=== PATIENT | male | born 1995 | race Caucasian/White ===

== ENCOUNTER 2017-10-23 11:24 | Emergency (ER) | payer OTHER ==
--- NOTE | 2017-10-23 12:17 | UC ---
Throat Pain/Nasal Tom HPI - HPI Summary HPI Summary: Patient is a 22-year-old male with a 5 day history of severe sinus pressure and pain. He has had a hard time breathing through his nose. Had significant postnasal drip. He has felt fatigued. He denies any fever or chills. - History of Current Complaint Chief Complaint: UCGeneralIllness Stated Complaint: SINUS/CONGESTION Time Seen by Provider: 10/23/17 12:03 Hx Obtained From: Patient Onset/Duration: Sudden Onset Severity: Mild Pain Intensity: 5 Pain Scale Used: 0-10 Numeric Associated Signs & Symptoms: Positive: Sinus Discomfort, Nasal Discharge Related History: Prior ENT Surgery - right cholesatoma surgery - Epiglottits Risk Factors Epiglottis Risk Factors: Negative - Allergies/Home Medications Allergies/Adverse Reactions: Allergies Allergy/AdvReac Type Severity Reaction Status Date / Time No Known Allergies Allergy Verified 10/23/17 12:00 Home Medications: Home Medications Ibuprofen/Pseudoephedrine HCl [Advil Cold & Sinus Caplet] 2 each PO Q8HR PRN 12/03 [History Confirmed 10/23/17] PMH/Surg Hx/FS Hx/Imm Hx Previously Healthy: Yes - Surgical History Surgical History: Yes Surgery Procedure, Year, and Place: right hand. right ear surgery - Family History Known Family History: Positive: Hypertension - dad - Social History Alcohol Use: Occasionally Substance Use Type: None Smoking Status (MU): Never Smoked Tobacco Review of Systems Constitutional: Negative Skin: Negative Eyes: Negative ENT: Nasal Discharge, Sinus Congestion, Sinus Pain/Tenderness Respiratory: Cough Cardiovascular: Negative Gastrointestinal: Negative Genitourinary: Negative Motor: Negative Neurovascular: Negative Musculoskeletal: Negative Neurological: Negative Psychological: Negative Is Patient Immunocompromised?: No All Other Systems Reviewed And Are Negative: Yes Physical Exam Triage Information Reviewed: Yes Appearance: Well-Appearing, No Pain Distress, Well-Nourished Vital Signs: Initial Vital Signs Temp 99.1 F 10/23/17 11:57 Pulse 80 10/23/17 11:57 Resp 16 10/23/17 11:57 BP 148/74 10/23/17 11:57 Pulse Ox 100 10/23/17 11:57 Eyes: Positive: Conjunctiva Clear ENT: Positive: Hearing grossly normal, Nasal congestion, TMs normal, Sinus tenderness, Uvula midline. Negative: Tonsillar swelling, Tonsillar exudate Throat Pain/Nasal Course/Dx - Differential Dx/Diagnosis Provider Diagnoses: acute sinusitis Discharge - Sign-Out/Discharge Documenting (check all that apply): Discharge/Admit/Transfer - Discharge Plan Condition: Stable Disposition: HOME Prescriptions: Amoxicillin PO (*) [Amoxicillin 875 MG (*)] 875 mg PO BID #20 tab Fluticasone NASAL SPRAY 50MCG* [Flonase NASAL SPRAY 50MCG*] 2 spray BOTH NARES BID #1 btl Patient Education Materials: Sinusitis (ED) Referrals: Non Staff,Doctor [Primary Care Provider] - Additional Instructions: saline nasal spray : 2 sprays twice daily recheck in 5-7 days if not better - Billing Disposition and Condition Condition: STABLE Disposition: Home
== END 2017-10-23 12:26 | disposition home or self-care (01) ==
LOC: UCCORT 11:24
DX: J01.90 Acute sinusitis, unspecified (principal)
CPT/HCPCS: 99202; G0463